=== PATIENT | male | born 1950 | race Caucasian/White ===

== ENCOUNTER 2023-07-31 11:26 | Emergency (ER) | payer MEDICARE, OTHER ==
[2023-07-31] MEDS ORDERED: Bacitracin 1 PK ONE (11:56)
[2023-07-31] MEDS ORDERED: Boostrix 0.5 ML (Tdap) VIAL (>/=7 yrs of age) ONE (11:56)
[2023-07-31] MEDS ORDERED: Lidocaine 1% PF 5 ML VIAL ONE (11:56)
== END 2023-07-31 12:36 | disposition home or self-care (01) ==
LOC: MADERS 11:26
DX: S61.216A Laceration without foreign body of right little finger without damage to nail, initial encounter (principal); Z23 Encounter for immunization; I10 Essential (primary) hypertension; Z79.899 Other long term (current) drug therapy; W26.8XXA Contact with other sharp object(s), not elsewhere classified, initial encounter
CPT/HCPCS: 12001; 90471; 90715